=== PATIENT | female | born 1960 | race Caucasian/White ===

== ENCOUNTER 2018-10-23 10:32 | Emergency (ER) | payer OTHER ==
[~2018-10-23] VITALS: Ht 165.1 cm; Wt 95.3 kg
[2018-10-23] MEDS ORDERED: XANAX 0.25 MG0.25 MG PO (11:04)
[2018-10-23 11:15] VITALS: BP 160/107
== END 2018-10-23 11:18 | disposition home or self-care (01) ==
LOC: M.ERS 10:32
DX: F41.0 Panic disorder [episodic paroxysmal anxiety] (principal); F17.200 Nicotine dependence, unspecified, uncomplicated

== ENCOUNTER 2019-01-01 12:31 | Inpatient (IN) | payer OTHER ==
[2019-01-01] VITALS (19 sets, daily range): BP systolic 121–172; BP diastolic 60–111
[~2019-01-01] VITALS: Ht 162.6 cm; Wt 106.9 kg
[~2019-01-01 12:31] MED LIST: XANAX 0.25 MG0.25 MG PO
[2019-01-01 12:53] LABS: ABSOLUTE BASOPHILS 0.1 thou/uL (0.0-0.2); ABSOLUTE EOSINOPHILS 0.2 thou/uL (0.0-0.7); ABSOLUTE LYMPHOCYTES 3.4 thou/uL (0.8-5.3); ABSOLUTE MONOCYTES 0.6 thou/uL (0.0-1.2); ABSOLUTE NEUTROPHILS 5.9 thou/uL (1.6-8.1); EOSINOPHILS 1.5 %; HEMATOCRIT 45.4 % (37.0-47.0); HEMOGLOBIN 15.5 gm/dL (12.0-15.0); LYMPHOCYTES 33.7 %; MCHC 34.2 g/dL (28.0-37.0); MCV 87.9 fL (80.0-100.0); MONOCYTES 5.9 %; MPV 7.6 fl. (7.2-11.1); NUCLEATED RBCS 0 /100WBC; PLATELET COUNT* 306 thou/uL (150-400); POLYS 57.9 %; RBC 5.17 mil/uL (4.20-5.00); RDW-CV 13.7 % (10.5-14.5); WBC 10.1 thou/uL (4.0-11.0)
[2019-01-01 13:04] LABS: APTT 27.8 Seconds (25.0-31.3); PROTIME 10.1 Seconds (9.20-11.50)
[2019-01-01 13:10] LABS: CALCIUM 8.8 mg/dL (8.5-10.1); CREATININE 0.7 mg/dL (0.6-1.3); POTASSIUM 3.6 mmol/L (3.5-5.1)
[2019-01-01 13:26] LABS: ALBUMIN 3.6 g/dL (3.4-5.0); CK-MB MASS 8.3 ng/mL (<0.5-3.6); TOTAL BILIRUBIN 0.3 mg/dL (<0.1-1.0); TOTAL PROTEIN 7.2 g/dL (6.4-8.2); TROPONIN-I LEVEL 1.67 ng/mL (<0.06)
--- NOTE | 2019-01-01 14:34 | NUR ---
FIBER MACHINE TENDER HERE FOR PT
--- NOTE | 2019-01-01 16:24 | EKG ---
[place] [address] ELECTROCARDIOGRAM REPORT Name: CEDRICESTEBAN STINSON Room: [address] ADM IN ..#: [id number] Admission: 01/01/19 Attend Phys: Speedy See MD, F Discharge: Date of : 58 Report #: [id number] THIS REPORT FOR: //name// [facility] ED Test Date: 2019-01-01 Test Time: 12:37:10 Pat Name: ESTEBAN STEELE Department: Room: [facility] Gender: F Distribution A Class Lineman: : 1960 Requested By: Luis Mccormick Order Number: [id number] MD: Speedy See Measurements Intervals [place] Rate: 83 P: 42 [place]: 165 QRS: -11 QRSD: 89 T: 43 QT: 384 QTc: 452 Interpretive Statements sinus rhythm, Low voltage, precordial leads Borderline ST depression, lateral leads No previous ECG available for comparison Electronically Signed On 01-01-2019 16:24:06 CDT by Speedy See [email or web address] <ELECTRONICALLY SIGNED> By: Speedy See MD, [facility] 01/01/19 1624 1237 1237 Speedy See MD, [facility] /EPI
[2019-01-01] MEDS ORDERED: IBUPROFEN 200200 M1 PO (16:32)
--- NOTE | 2019-01-01 17:02 | NUR ---
RECIEVIED REPORT FROM ROSA MARIA RN IN [facility] HELPER POST CATH AT 1600- PT REPORTED TO HAVE HAD 1 STENT PLACED TO MID CIRCUMFLEX, ACCESS THROUGH RIGHT WRIST- PT ARRIVED TO ROOM 204 AT 1608 VIA BED- FURRIER DESIGNER PLACED ORDERED, TRACING SR- PT A&O X4- CONTINENT OF BOWEL AND BLADDER- SBA WITH TRANSFERS FOR SAFETY- LCTA, DIMINSHED IN BASES- RESP EVEN AND UN-LABORED- VSS, O2 SAT 97% ON RA- VASC BAND IN PLACE TO RIGHT WRIST INDICATED, AIR TO BE REMOVED PER PROTOCOL- VS IN PLACE PER PROTOCOL POST CATH- IV NOTED TO RIGHT AC WITH IVF INFUSSING PRESCIBED- IV NOTED TO LEFT AC INTACT AND SL- SKIN C/D/I- PT DENIES ANY C/O PAIN/DISCOMFORT AT THIS TIME- CALL LIGHT AND PERSONAL BELONGINGS WITH IN REACH- FAMILY CURRENLTY AT BED SIDE VISITING- PT MAKES NEEDS KNOWN- ALL NEEDS MET AT THIS TIME-WCTM
--- NOTE | 2019-01-01 18:42 | CARD ---
[address] [address] CARDIAC CATH REPORT Name: ESTEBAN STEELE Room: [address] IN [facility]#: [id number] Admission: 01/01/19 Attend Phys: Speedy See MD, F Discharge: Date of : 58 Report #: [id number] THIS REPORT FOR: //name// APPROVED REPORT Study performed: 01/01/2019 14:12:13 Patient Details Patient Status: In-Patient Room #: The patient is a 58 year-old female Event Personnel Speedy See Research Associate Molecular Biology, Radha Zhong RN RN, Kelsea Tobias RN RN, Jose Cruz Clement Scrub, Virginie Robles RTR Monitor, Gustavo Salamanca (R) Monitor Procedures Performed Left Heart Cath w/or w/o Coronaries [id number] [facility], stent placement Indication Unstable angina , Chest pain Risk Factors Tobacco History () Admission/Lab Medications/Medications given during procedure Glycoprotein IllbIlla Inhibitors, Heparin Unfract. Procedure Narrative The patient was brought electively to the Cardiac Catheterization Laboratory and was prepped and draped in a sterile manner. The right wrist was infiltrated with 1% Lidocaine subcutaneous anesthesia. A Slender Glidesheath sheath was inserted into the right radial artery. Coronary angiography was performed using coronary diagnostic catheters. The right coronary system was accessed and visualized with a JR4 catheter. The left coronary system was accessed and visualized with a JL4 catheter. The left ventricle was accessed and visualized with a ANGLED PIGTAIL catheter. Left ventricular/Aortic Valve gradient assessed via catheter pullback. Left ventriculogram was performed in MEYER projection. Closure device was deployed with a 6 Fr vascband. The patient tolerated the procedure well and there were no complications associated with the procedure. [place] [address] CARDIAC CATH REPORT Name: ESTEBAN STEELE Room: [address] IN ..#: [id number] Admission: 01/01/19 Attend Phys: Speedy See MD, F Discharge: Date of : 58 Report #: [id number] Intraoperative Conscious Sedation Sedation start time: 15:02 Case end Time: 15:44 Fentanyl 25 mcg Versed 2 mg Fluoro Time: 7.9 minutes Dose: DAP 07708 cGycm2 1130 mGy Contrast Type and Amount: Omnipaque 160 ml Coronary Angiography The patient's coronary anatomy is right dominant. Diagnostic Cath Left Main 0% stenosis LAD 60% mid stenosis Circumflex 40% mid stenosis OM3 80% proximal stenosis Right Coronary 30% proximal stenosis Left Ventriculography The left ventricular ejection fraction is estimated to be 55-60%. Left ventricular wall motion abnormalities are present. There is no mitral insufficiency. severe hypokinesis noted of the apex Hemodynamics The aortic pressure is 137/78 mmHg with a mean of 105 mmHg. The left ventricular pressure is 126/10 mmHg with a mean of mmHg. The left ventricular end diastolic pressure is 10 mmHg. There was no gradient across the aortic valve upon pullback. Pullback from the left ventricle to the aorta revealed no gradient across the aortic valve. PCI Technique Lesion Anticoagulation was achieved with Heparin. bolus of iv aggrastat given Percutaneous coronary intervention was performed on the third obtuse marginal branch segment. The lesion stenosis prior to intervention was 80% with GUERLINE 3 flow. A 6FR XB 3.5 100CM Guide Catheter was used to engage the lm ostium. A IG: BMW 190cm Interventional Guidewire was used to cross the lesion. STENT DEPLOYMENT A drug-eluting stent Ramses RX Stent 3.0X15mm was inserted and inflated up to 9.00atm for 16seconds. Repeat angiography revealed the following post-stent deployment results: 0% [place] [address] CARDIAC CATH REPORT Name: ESTEBAN STEELE Room: [address] IN [facility]#: [id number] Admission: 01/01/19 Attend Phys: Speedy See MD, F Discharge: Date of : 58 Report #: [id number] Inflation: 10.00atm for 7seconds. Additional Inflation: 11.00atm for 12seconds. Final angiography reveals 0 % stenosis with GUERLINE 3 flow. Conclusion 1. 60% stenosis of the mid lad, and 80% stenosis of the 3rd marginal branch of the circumflex 2. successful placement of a drug eluting stent in the marginal branch 3. LVEF 55% Recommendations Smoking Cessation Medications Administered Ticagrelor <ELECTRONICALLY SIGNED> By: Speedy See MD, [facility] 01/01/191841 41 1842Dmiguel See MD, [facility] /INF
[2019-01-02] VITALS: BP 148/92
[2019-01-02 04:00] VITALS: BP 162/93
[2019-01-02 05:17] LABS: HEMATOCRIT 42.2 % (37.0-47.0); HEMOGLOBIN 14.2 gm/dL (12.0-15.0); MCH 29.7 pg (26.0-34.0); MCHC 33.7 g/dL (28.0-37.0); MCV 88.3 fL (80.0-100.0); MPV 7.8 fl. (7.2-11.1); RBC 4.78 mil/uL (4.20-5.00); RDW-CV 13.8 % (10.5-14.5); WBC 9.5 thou/uL (4.0-11.0)
[2019-01-02 05:29] LABS: ANION GAP 6 mmol/L (7-16); BUN 10 mg/dL (7-18); CALCIUM 8.2 mg/dL (8.5-10.1); CHLORIDE 107 mmol/L (98-107); CHOLESTEROL 220 mg/dL (<200); CO2 26 mmol/L (21-32); CREATININE 0.6 mg/dL (0.6-1.3); GLUCOSE 130 mg/dL (70-99); HDL CHOLESTEROL 28 mg/dL (>40); LDL CHOLESTEROL 128 mg/dL (<100); POTASSIUM 3.5 mmol/L (3.5-5.1); SODIUM 139 mmol/L (136-145); TC:HDL 7.9 Ratio (Not establshd); TRIGLYCERIDE 323 mg/dL (<150); VLDL 65 mg/dL (<40)
[2019-01-02 05:30] LABS: SERUM ASSESSMENT Clear
--- NOTE | 2019-01-02 06:13 | NUR ---
PATIENT WITH CATH IN RT RADIAL. VITALS DOCUMENTED. RADSTAT REMOVED; SITE COVERED WITH BANDAID. NO BLEEDING NOTED. FLUIDS INFUSING PER DR ORDER. PT C/O MINIMAL BACK PAIN. PT UP TO BATHROOM WITH STANDBY. FREQUENTLY USED ITEMS AND CALL LIGHT WITHIN REACH. SIDERAILS UPX2. DAUGHTER AT BEDSIDE. WILL CONTINUE TO MONITOR.
[2019-01-02 08:00] VITALS: BP 147/88
[2019-01-02] MEDS ORDERED: LIPITOR40 MG PO (10:35)
[2019-01-02] MEDS ORDERED: LOPRESSOR25 PO (10:36)
[2019-01-02] MEDS ORDERED: NITROGLYCERIN0.4 MG SUBLING (10:37)
[2019-01-02] MEDS ORDERED: BRILINTA60 MG PO (10:37)
[2019-01-02] MEDS ORDERED: ASPIR 8181 MG PO (10:38)
[2019-01-02] MEDS ORDERED: TYLENOL325 MG PO (10:39)
[2019-01-02 10:47] VITALS: BP 147/88
[2019-01-02 11:14] VITALS: BP 147/88
[2019-01-02 11:20] VITALS: BP 147/88
--- NOTE | 2019-01-02 11:32 | NUR ---
ASSUMED PT CARE AT 0800, AOX4, UP AD POLLO. O2 SAT 90'S RA. TRACING SR ON AUTOMOTIVE PARTS INTERPRETER. DENIES PAIN. PT FOR DISCHARGE. CATH SITE ON THE R WRIST INTACT. VSS, AM ASSESSMENT CHARTED. MEDS GIVEN PER AUG. HOURLY ROUNDING. WILL CONTINUE TO MONITOR.
--- NOTE | 2019-01-02 13:21 | NUR ---
Nutrition: Consult recevied for "weight." Pt weighs 235#. Admitted with chest pain. Heart Healthy diet. H/o HLD, CAD, HTN. Albumin 3.6. Pt is discharging. No nutrition interventions today. GOAL: gradual wt loss over time. Low risk.
--- NOTE | 2019-01-02 14:13 | NUR ---
DISCUSSED DISCHARGE PLAN WITH PT. MEDICATION SCRIPT/PACKET GIVEN. IV, TELE REMOVED. REMINDED TO FOLLOW UP WITH CARDIOLOGY. [facility] ADVISED. ALL BELONGINGS PACKED AND CHECKED. LEFT THE UNIT AT 1330 AMBULATORY.
--- NOTE | 2019-01-02 16:08 | EKG ---
[place] [address] ELECTROCARDIOGRAM REPORT Name: CEDRICESTEBAN STINSON Room: [address] DIS IN M.R.#: [id number] Admission: 01/01/19 Attend Phys: Speedy See MD, F Discharge: 01/02/19 Date of : 58 Report #: [id number] THIS REPORT FOR: //name// [facility] Test Date: 2019-01-01 Test Time: 16:22:10 Pat Name: ESTEBAN STEELE Department: Room: [address] Gender: F Surgery Center Administrator: LEROY : 1960 Requested By: Speedy See Order Number: [id number] Catalina MD: Speedy See Measurements Intervals [place] Rate: 64 P: 29 [place]: 198 QRS: -3 QRSD: 85 T: 30 QT: 446 QTc: 461 Interpretive Statements Sinus rhythm Low voltage, precordial leads Compared to ECG 01/01/2019 12:37:10 ST (T wave) deviation no longer present Electronically Signed On 01-02-2019 16:08:14 CDT by Speedy See [email or web address] <ELECTRONICALLY SIGNED> By: Speedy See MD, [facility] 01/02/19 1608 1622 1622 Speedy See MD, [facility] /EPI
--- NOTE | 2019-01-02 16:14 | EKG ---
[place] [address] ELECTROCARDIOGRAM REPORT Name: CEDRICESTEBAN SHANTELL Room: [address] DIS IN M.R.#: [id number] Admission: 01/01/19 Attend Phys: Speedy See MD, F Discharge: 01/02/19 Date of : 58 Report #: [id number] THIS REPORT FOR: //name// [facility] Test Date: 2019-01-02 Test Time: 05:50:43 Pat Name: ESTEBAN STEELE Department: Room: [address] Gender: F Business Partner: : 1960 Requested By: Speedy See Order Number: [id number] Catalina MD: Speedy See Measurements Intervals [place] Rate: 77 P: 30 CT: 182 QRS: -11 QRSD: 85 T: 17 QT: 381 QTc: 432 Interpretive Statements Sinus rhythm Low voltage, precordial leads Compared to ECG 01/01/2019 12:37:10 no change Electronically Signed On 01-02-2019 16:14:41 CDT by Speedy See [email or web address] <ELECTRONICALLY SIGNED> By: Speedy See MD, [facility] 01/02/19 1614 0550 0550 Speedy See MD, [facility] /EPI
--- NOTE | 2019-01-03 16:54 | CON ---
[address] [address] CONSULTATION Name: STEELEESTEBANNANCIE STINSON Room: [address] IN M.R.#: [id number] Admission: 01/01/19 Attend Phys: Speedy See MD, F Discharge: 01/02/19 Date of : 58 Report #: [id number] THIS REPORT FOR: //name// CC: Speedy See [facility] physician/PCP Alison Isabel DO DATE OF SERVICE: 01/01/2019 CARDIOLOGY CONSULTATION HISTORY OF PRESENT ILLNESS: The patient is a 58-year-old single white female who was brought to the Emergency Room complaining of chest pain. The patient has no previous history of heart disease. She is not very active and has had no previous cardiac evaluation. She notes recently she has been having intermittent chest pressure. It is not related to exertion or meals. She has had no bleeding or fever. She denied any rash of her chest. Today, she was at work when she felt ache in her chest, went into her jaw, arms and into her back. She felt short of breath and diaphoretic. She noted some nausea. She went to see Dr. Isabel who called an ambulance and brought here to [place]. In the Emergency Room, she continued to have some chest pain. She notes some exertional dyspnea and skipped heartbeat, but no syncope. She denies chronic cough or fever. She has had no bleeding. PAST MEDICAL HISTORY: Significant for tubal ligation, cataract extraction. No history of hypertension, diabetes, hyperlipidemia. MEDICATIONS: She is on no medications. ALLERGIES: She has no known drug allergies. FAMILY HISTORY: Her grandfather of heart disease. SOCIAL HISTORY: She is , lives by herself in [place], works in a bank, smokes a pack of cigarettes a day. No alcohol abuse. REVIEW OF SYSTEMS: She has had no history of stroke. She has had a peptic ulcer in the past. No history of liver disease, kidney disease. She saw a psychiatrist in the past for anxiety. No chronic skin condition. PHYSICAL EXAMINATION: GENERAL: Revealed a middle-aged female lying in bed. She appeared in no acute distress. VITAL SIGNS: Blood pressure 136/94, pulse 70. She is afebrile. HEENT: She was anicteric, conjunctivae pink. Mucous membranes moist. NECK: Veins nondistended. No carotid bruits[place] [address] CONSULTATION Name: ESTEBAN STEELE Room: [address]#: [id number] Admission: 01/01/19 Attend Phys: Speedy See MD, F Discharge: 01/02/19 Date of : 58 Report #: [id number] CHEST: Clear to auscultation. CARDIAC: Regular rate and rhythm without murmur or rub. ABDOMEN: Soft. EXTREMITIES: Had no edema. Dorsalis pedis pulse 2+ bilaterally. SKIN: Warm and dry. NEUROLOGIC: Nonfocal. DIAGNOSTIC IMAGING: ECG showed a sinus rhythm. There were nonspecific ST-segment changes noted. On her workup so far, she had a portable chest x-ray that showed normal heart size and clear lung nolen. LABORATORY DATA: Sodium 139, creatinine 0.7, glucose 121. Liver function studies were normal. Her troponin is 1.67. White blood cell count 10.1, hemoglobin 15.5. IMPRESSION RECOMMENDATIONS: 1. Non-ST segment elevation myocardial infarction. Recommend cardiac catheterization. 2. Tobacco abuse. <ELECTRONICALLY SIGNED> By: Speedy See MD, [facility] 01/03/19 1654 1356 2351Dmiguel See MD, [facility] /nt
== END 2019-01-02 13:30 | disposition home or self-care (01) | DRG 247 ==
LOC: M.CL 12:31 → M.ERS 12:31 → M.TBA-ER 13:40 → M.ERS 13:40 → M.TBA-ER 16:07 → M.2W 16:23
PROVIDERS: Family Medicine; ADMIT Internal Medicine Cardiovascular Disease
DX: I21.4 Non-ST elevation (NSTEMI) myocardial infarction (principal); Z68.41 Body mass index [BMI] 40.0-44.9, adult; I10 Essential (primary) hypertension; E11.9 Type 2 diabetes mellitus without complications; E78.5 Hyperlipidemia, unspecified; F17.210 Nicotine dependence, cigarettes, uncomplicated; E66.01 Morbid (severe) obesity due to excess calories; I25.10 Atherosclerotic heart disease of native coronary artery without angina pectoris; Z71.6 Tobacco abuse counseling; Z98.49 Cataract extraction status, unspecified eye; Z82.49 Family history of ischemic heart disease and other diseases of the circulatory system; Z79.899 Other long term (current) drug therapy

== ENCOUNTER → 2020-07-18 | Outpatient (CLI) | payer OTHER ==
[~2020-07-18] VITALS: Ht 162.6 cm; Wt 104.3 kg
[~2020-07-18] MED LIST changes: +ASPIR 8181 MG PO; +BRILINTA60 MG PO; +IBUPROFEN 200200 M1 PO; +LIPITOR40 MG PO; +LOPRESSOR25 PO; +METFORMIN HCL500 MG PO; +NITROGLYCERIN0.4 MG SUBLING; +TYLENOL325 MG PO; +UNICOMPLEX M TA1 TA1 PO; +VITAMIN D350 MCG PO
[2020-07-18 10:59] VITALS: BP 143/82
[2020-07-18 11:52] LABS: HEMATOCRIT 43.4 % (37.0-47.0); HEMOGLOBIN 14.4 gm/dL (12.0-15.0); MCH 29.9 pg (26.0-34.0); MCHC 33.2 g/dL (28.0-37.0); MCV 90.1 fL (80.0-100.0); MPV 8.7 fl. (7.2-11.1); RBC 4.81 mil/uL (4.20-5.00); RDW-CV 13.6 % (10.5-14.5); WBC 7.1 thou/uL (4.0-11.0)
[2020-07-18 12:04] LABS: APTT 24.8 Seconds (25.0-31.3); PROTIME 10.2 Seconds (9.20-11.50)
[2020-07-18 12:12] LABS: ALKALINE PHOSPHATASE 110 U/L (46-116); ANION GAP 8 mmol/L (7-16); BUN 18 mg/dL (7-18); CALCIUM 9.1 mg/dL (8.5-10.1); CHLORIDE 105 mmol/L (98-107); CO2 28 mmol/L (21-32); CREATININE 0.6 mg/dL (0.6-1.3); GLUCOSE 138 mg/dL (70-99); POTASSIUM 4.2 mmol/L (3.5-5.1); SERUM ASSESSMENT Clear; SGOT 42 U/L (15-37); SGPT 56 U/L (30-65); SODIUM 141 mmol/L (136-145); TOTAL BILIRUBIN 0.5 mg/dL (<0.1-1.0); TOTAL PROTEIN 7.9 g/dL (6.4-8.2)
[2020-07-18 13:33] VITALS: BP 144/66
--- NOTE | 2020-07-18 13:45 | EKG ---
[place] [address] ELECTROCARDIOGRAM REPORT Name: CEDRICESTEBAN SHANTELL Room: [facility]#: [id number] Admission: 07/18/20 Attend Phys: Speedy See MD Discharge: Date of : 58 Date of Service: 07/18/20 1157 Report #: [id number] THIS REPORT FOR: //name// [facility] Test Date: 2020-07-18 Test Time: 11:57:20 Pat Name: ESTEBAN STEELE Department: Room: Gender: F Life Enrichment Director: TM : 1960 Requested By: Speedy See Order Number: [id number] Reading MD: Speedy See Measurements Intervals [place] Rate: 59 P: 33 PA: 186 QRS: -17 QRSD: 94 T: 17 QT: 461 QTc: 457 Interpretive Statements Sinus rhythm Low voltage, precordial leads LVH by voltage Compared to ECG 01/02/2019 05:50:43 Left ventricular hypertrophy now present Electronically Signed On 07-18-2020 13:45:14 LUBRICATING SPECIALIST by Speedy See [email or web address] <ELECTRONICALLY SIGNED> By: Speedy See MD, [facility] 07/18/20 1345 1157 1157 Speedy See MD, [facility] /EPI
[2020-07-18 14:05] VITALS: BP 173/69
[2020-07-18 14:32] VITALS: BP 179/77
[2020-07-18 14:34] LABS: CHOLESTEROL 152 mg/dL (<200); HDL CHOLESTEROL 37 mg/dL (>40); LDL CHOLESTEROL 87 mg/dL (<100); TC:HDL 4.1 Ratio (Not establshd); TRIGLYCERIDE 141 mg/dL (<150); VLDL 28 mg/dL (<40)
--- NOTE | 2020-07-18 17:20 | CARD ---
[address] [address] CARDIAC CATH REPORT Name: ESTEBAN STEELE Room: [facility] MADELIN Valdez.#: [id number] Admission: 07/18/20 Attend Phys: Speedy See MD, F Discharge: Date of : 58 Report #: [id number] THIS REPORT FOR: cc: FAM - No family physician/PCP FAM - No family physician/PCP ~ Speedy See MD [facility] ADDENDUM APPROVED REPORT Study performed: 07/18/2020 11:46:17 Patient Details Patient Status: Out-Patient Room #: The patient is a 60 year-old female Event Personnel Alexandra Michaels Gear Cutting Machine Set Up OperatorMayi rhodes David Accounting Systems Manager, Mejia Garcia RTR Scrub, Virginie Robles RTR Monitor Procedures Performed Art Access - R radial artery FFR [id number] FFR, diagnostic cath Indication Dyspnea, Chest pain Risk Factors Hypercholesterolemia, Coronary Artery DiseaseHypertension, Tobacco History () Previous Procedures/Diagnoses Previous PCI Admission/Lab Medications/Medications given during procedure Heparin Unfract. Procedure Narrative The patient was brought electively to the Cardiac Catheterization Laboratory and was prepped and draped in a sterile manner. The right wrist was infiltrated with 1% Lidocaine subcutaneous anesthesia. A Slender Glidesheath sheath was inserted into the right radial artery. Coronary angiography was performed using coronary diagnostic catheters. The right coronary system was accessed and visualized with a Diagnostic JL4 catheter. The left [place] [address] CARDIAC CATH REPORT Name: ESTEBAN STEELE Room: [facility]#: [id number] Admission: 07/18/20 Attend Phys: Speedy See MD, F Discharge: Date of : 58 Report #: [id number] visualized with a Diagnostic JR4 catheter. The left ventricle was accessed and visualized with a PIG catheter. Left ventricular/Aortic Valve gradient assessed via catheter pullback. Left ventriculogram was performed in MEYER projection. Closure device was deployed with a 6 Fr Vasc-Band Reg 24cm. The patient tolerated the procedure well and there were no complications associated with the procedure. There was no hematoma. Intraoperative Conscious Sedation Sedation start time: 1235 Case end Time: 1315 Fentanyl 25 mcg Versed 2 mg Fluoro Time: 5.0 minutes Dose: DAP 86580 cGycm2 873 mGy Contrast Type and Amount: Visipaque 120 ml Coronary Angiography The patient's coronary anatomy is right dominant. Diagnostic Cath Left Main 0% stenosis LAD 60% mid stenosis Circumflex 30% proximal stenosis OM3 stent with 0% restenosis Right Coronary 30% mid stenosis Ramus 0% stenosis Left Ventriculography The left ventricular ejection fraction is estimated to be 60-65%. Left ventricular wall motion abnormalities are not present. There is no mitral insufficiency. Hemodynamics The aortic pressure is 116/85 mmHg with a mean of 101 mmHg. The left ventricular pressure is 141/10 mmHg with a mean of mmHg. The left ventricular end diastolic pressure is 12 mmHg. There was no gradient across the aortic valve upon pullback. Pullback from the left ventricle to the aorta revealed no gradient across the aortic valve. PCI Technique Lesion Anticoagulation was achieved with Heparin. Percutaneous coronary intervention was performed on the mid left anterior descending artery segment. The lesion stenosis prior to intervention was 60% [place] [address] CARDIAC CATH REPORT Name: ESTEBAN STEELE Room: [facility]#: [id number] Admission: 07/18/20 Attend Phys: Speedy See MD, F Discharge: Date of : 58 Report #: [id number] 3 flow. A xblad3.5 Guide Catheter was used to engage the lm ostium. A radi Interventional Guidewire was used to cross the lesion. Final angiography reveals 60 % stenosis with GUERLINE 3 flow. COMMENTS Fractional flow reserve measured at baseline was 0.96. After 2 minutes of IV adenosine infusion, the FFR was 0.92. Therefore, the lesion was not stented. Conclusion 1. 60% stenosis of the mid LAD. FFR following IV adenosine infusion was only 0.92 therefore the lesion was not stented. 2. no restenosis of a stent in the marginal branch of the circumflex 3. LVEF 60-65% Recommendations Aggressive Medical Therapy <ELECTRONICALLY SIGNED> By: Speedy See MD, [facility] 07/18/201719 19 19Daroslyn See MD, [facility] /INF
== END | disposition home or self-care (01) ==
LOC: M.CL 09:29
PROVIDERS: ATTEND Internal Medicine Cardiovascular Disease
DX: R07.9 Chest pain, unspecified (principal); R06.00 Dyspnea, unspecified; I25.10 Atherosclerotic heart disease of native coronary artery without angina pectoris; I10 Essential (primary) hypertension; E78.00 Pure hypercholesterolemia, unspecified; I25.2 Old myocardial infarction; Z98.890 Other specified postprocedural states; Z79.899 Other long term (current) drug therapy; Z98.51 Tubal ligation status; Z20.822 Contact with and (suspected) exposure to COVID-19; Z87.891 Personal history of nicotine dependence; Z79.82 Long term (current) use of aspirin